=== PATIENT | male | born 1995 | race African-American/Black ===

== ENCOUNTER 2020-01-10 16:13 | Emergency (ER) | payer SELFPAY ==
[~2020-01-10 16:13] MED LIST: Iopamidol-370 76% 500 ML 1 ML ONE
[2020-01-10 16:57] LABS: Hemoglobin 15.1 g/dL (14.0-18.0); Mean Corpuscular HGB CONC 32.9 g/dL (32.0-36.0); Mean Corpuscular Hemoglobin 32.8 pg (27.0-31.0); Mean Corpuscular Volume 99.8 fL (78.0-98.0); Mean Platelet Volume 6.2 fL (7.4-10.4); Platelet Count 455 thou/uL (130-400); RBC Distribution Width 11.6 % (11.5-14.5); White Blood Cell (WBC) Count 15.1 thou/uL (4.8-10.8)
[2020-01-10 17:03] LABS: INR-International Normal Ratio 1.7; PTT 28.2 sec (22.9-36.1); Prothrombin Time 20.2 sec (12.0-14.7)
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
[2020-01-10 17:11] LABS: D-Dimer Test Less than 0.27 *mcg/mL (0.27-0.43)
[2020-01-10 17:13] LABS: ALT (SGPT) 18 U/L (8-55); AST (SGOT) 20 U/L (5-34); Albumin 4.7 g/dL (3.5-5.0); Alkaline Phosphatase 81 U/L (40-110); BUN (Urea Nitrogen) 14 mg/dL (8.9-20.6); Calc. Creatinine Clearance 0 mL/min (70-130); Calcium 10.3 mg/dL (7.8-10.44); Chloride 101 mmol/L (98-107); Estimated GFR-MDRD 35; Globulin 4.5 g/dL (2.4-3.5); Glucose 129 mg/dL (70-105); Protein, Total 9.2 g/dL (6.0-8.3); Sodium 140 mmol/L (136-145)
[2020-01-10 17:14] LABS: Band 1 % (5-11); Eosinophils 3 % (0-10); Lymphocytes 47 % (21-51); MDiff Complete? YES; Macrocytosis SLIGHT = 6-15 cells (100X) (0-5/hpf); Monocytes 3 % (0-10); Neutrophil 37 % (42-75); Platelet Morphology Comment Appears Increased; Polychromasia SLIGHT = 2-3 cells (100X) (0-2/hpf); Reactive Lymphocytes 9 % (0-10)
[2020-01-10 17:16] LABS: Acetaminophen Less than 6.0 mcg/mL (10.0-30.0); Alcohol Less than 10 mg/dL (Less than 10); CK (CPK) 446 U/L (30-200); Salicylate Less than 8.0 mg/dL (15.0-30.0)
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
[2020-01-10 17:21] LABS: Carbon Dioxide Less than 8 mmol/L (22-29)
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
[2020-01-10 18:14] LABS: Base Excess-Venous -4.1 mmol/L (-2.0 to 3.0); Bicarbonate (HCO3v) 20.4 mmol/L (22.0-28.0); CO2 Tension (PvCO2) 35.1 mmHg (40.0-50.0); Calcium, Ionized 1.14 mmol/L (1.15-1.33); Chloride 105 mmol/L (98-107); Hemoglobin - Calc 15.2 g/dL (14.0-18.0); Potassium 4.1 mmol/L (3.5-5.1); Sodium 141 mmol/L (138-145); T. Carbon Dioxide 21.5 mmol/L (22.0-28.0); vO2 Saturation-calc 99.9 % (60.0-85.0)
[2020-01-10] MEDS ORDERED: Cefepime 2 GM VIAL ONE (18:14)
[2020-01-10] MEDS ORDERED: Lidocaine 1% (PF) 30 ML VIAL ONE ×2 (18:14→18:15)
[2020-01-10] MEDS ORDERED: Boostrix 0.5 ML (Tdap) VIAL ONE (18:14)
[2020-01-10 18:18] LABS: Bilirubin Negative (Negative); Blood, Urine Negative (Negative); Clarity Clear (Clear); Glucose, Urine (Dipstick) Normal (Negative); Ketone, Urine Negative (Negative); Leukocyte Negative Leu/uL (Negative); Mucous/LPF 2+ LPF (<2+); Nitrite Negative (Negative); Protein, Urine (Dipstick) 100 mg/dL (Neg-Trace); Specific Gravity, Urine 1.033 (1.002-1.036); Squamous Epithelial None Seen HPF (0-3); Urobilinogen 3 mg/dL (Less than 2); WBC/HPF 0-3 HPF (0-3)
[2020-01-10 18:20] LABS: Medtox Reader # READER 1
[2020-01-10 18:21] LABS: Amphetamine Detected (NotDetected); Barbiturates Screen Not Detected (NotDetected); Benzodiazepine Screen Not Detected (NotDetected); Cocaine Metabolite Screen Not Detected (NotDetected); Medtox Control Line Valid? VALID (VALID); Methadone Not Detected (NotDetected); Methamphetamine Detected (NotDetected); Opiate Screen Not Detected (NotDetected); Oxycodone Screen Not Detected (NotDetected); Phencyclidine (PCP) Not Detected (NotDetected); THC/Cannabinoid Screen Detected (NotDetected); Tricyclic Screen Not Detected (NotDetected)
[2020-01-10 18:28] LABS: Bacteria/HPF None Seen HPF (None Seen)
[2020-01-10] MEDS ORDERED: Bacitracin 1 PK ONE (19:12)
== END 2020-01-10 19:55 | disposition left against medical advice (07) ==
LOC: ERS 16:13
DX: S62.316A Displaced fracture of base of fifth metacarpal bone, right hand, initial encounter for closed fracture (principal); S61.411A Laceration without foreign body of right hand, initial encounter; N17.9 Acute kidney failure, unspecified; S37.009A Unspecified injury of unspecified kidney, initial encounter; R31.9 Hematuria, unspecified; J45.909 Unspecified asthma, uncomplicated; F17.210 Nicotine dependence, cigarettes, uncomplicated; E87.2 Acidosis; V49.9XXA Car occupant (driver) (passenger) injured in unspecified traffic accident, initial encounter
CPT/HCPCS: 12002; 36415; 36416; 70450; 71260; 72125; 74177; 80053; 80306; 80307; 81003; 81015; 82330; 82550; 82803; 83605; 84484; 85025; 85379; 85610; 85730; 86850; 86900; 86901; 87040; 90471; 90715; 93005; 96365; J0692; J2001; Q9967